=== PATIENT | female | born 1945 | race Hispanic/Latino ===

== ENCOUNTER 2018-10-06 16:13 | Emergency (ER) | payer OTHER, MEDICARE ==
[2018-10-06] MEDS ORDERED: LIDOCAINE 5% TOPICAL PATCH TP ONE (16:52)
[2018-10-06] MEDS ORDERED: ACETAMINOPHEN-CODEINE 300/30MG TAB ONE (19:02)
== END 2018-10-06 20:05 | disposition home or self-care (01) ==
LOC: EDH 16:13
DX: S16.1XXA Strain of muscle, fascia and tendon at neck level, initial encounter (principal); I10 Essential (primary) hypertension; E11.9 Type 2 diabetes mellitus without complications; X58.XXXA Exposure to other specified factors, initial encounter; Y93.89 Activity, other specified; Y92.009 Unspecified place in unspecified non-institutional (private) residence as the place of occurrence of the external cause; Y99.8 Other external cause status
CPT/HCPCS: 72125

== ENCOUNTER → 2022-02-16 | Outpatient (CLI) | payer OTHER, MEDICARE | END | disposition home or self-care (01) | LOC: SHCH 11:18 | PROVIDERS: ATTEND Internal Medicine Cardiovascular Disease | DX: I73.9 Peripheral vascular disease, unspecified (principal); I87.2 Venous insufficiency (chronic) (peripheral) | CPT/HCPCS: 93925; 93970 ==

== ENCOUNTER → 2022-03-11 | Outpatient (CLI) | payer OTHER, MEDICARE ==
[2022-03-11 13:08] LABS: BASOPHILS % (AUTO) 0.6 % (0.0-5.0); EOSINOPHILS % (AUTO) 3.4 % (0.0-8.0); HEMATOCRIT 37.5 % (36-48); LYMPHOCYTES % (AUTO) 35.4 % (21.0-51.0); MEAN CORPUSCULAR HEMOGLOBIN 27.4 pg (27.0-33.0); MEAN CORPUSCULAR HGB CONC 32.3 g/dL (32.0-36.0); MONOCYTES % (AUTO) 10.8 % (3.0-13.0); NEUTROPHILS % (AUTO) 49.4 % (40.0-77.0); PLATELET COUNT (AUTO) 335 K/uL (130-400); RED BLOOD CELL COUNT(AUTO) 4.41 MIL/uL (4.00-5.50)
[2022-03-11 13:20] LABS: INR 0.94 (0.85-1.15); PROTHROMBIN TIME 10.3 SEC (9.6-11.6)
[2022-03-11 13:21] LABS: CREATININE 1.1 mg/dL (0.5-1.5); PARTIAL THROMBOPLASTIN TIME 27.4 SEC (26.3-35.5); POTASSIUM 3.7 mmol/L (3.5-5.1)
== END | disposition home or self-care (01) ==
LOC: LAB 10:03
PROVIDERS: ATTEND Internal Medicine Cardiovascular Disease
DX: I87.2 Venous insufficiency (chronic) (peripheral) (principal); M79.89 Other specified soft tissue disorders; I10 Essential (primary) hypertension; E78.49 Other hyperlipidemia; I73.9 Peripheral vascular disease, unspecified; R00.1 Bradycardia, unspecified; E66.9 Obesity, unspecified; Z68.30 Body mass index [BMI] 30.0-30.9, adult
CPT/HCPCS: 36415; 80048; 85025; 85610; 85730

== ENCOUNTER → 2022-09-13 | Outpatient (CLI) | payer OTHER, MEDICARE ==
[2022-09-13 16:16] LABS: BASOPHILS % (AUTO) 0.5 % (0.0-5.0); EOSINOPHILS % (AUTO) 3.2 % (0.0-8.0); HEMATOCRIT 37.9 % (36-48); LYMPHOCYTES % (AUTO) 36.5 % (21.0-51.0); MEAN CORPUSCULAR HEMOGLOBIN 27.8 pg (27.0-33.0); MEAN CORPUSCULAR HGB CONC 31.7 g/dL (32.0-36.0); MEAN CORPUSCULAR VOLUME 87.9 fL (79-99); MONOCYTES % (AUTO) 9.7 % (3.0-13.0); NEUTROPHILS % (AUTO) 49.8 % (40.0-77.0); PLATELET COUNT (AUTO) 296 K/uL (130-400); RED BLOOD CELL COUNT(AUTO) 4.31 MIL/uL (4.00-5.50); RED CELL DISTRIBUTION WIDTH 13.1 % (11.0-15.5); WHITE BLOOD COUNT (AUTO) 6.3 K/uL (4.8-10.8)
[2022-09-13 16:26] LABS: CREATININE 1.1 mg/dL (0.5-1.5); INR 0.94 (0.85-1.15); PROTHROMBIN TIME 10.3 SEC (9.6-11.6)
[2022-09-13 16:27] LABS: PARTIAL THROMBOPLASTIN TIME 29.2 SEC (26.3-35.5)
== END | disposition home or self-care (01) ==
LOC: LAB 11:29
PROVIDERS: ATTEND Internal Medicine Cardiovascular Disease
DX: I87.2 Venous insufficiency (chronic) (peripheral) (principal); E78.49 Other hyperlipidemia; I87.1 Compression of vein; M79.671 Pain in right foot; Z79.82 Long term (current) use of aspirin; Z79.02 Long term (current) use of antithrombotics/antiplatelets; Z79.899 Other long term (current) drug therapy
CPT/HCPCS: 36415; 80048; 85025; 85610; 85730

== ENCOUNTER → 2023-01-12 | Outpatient (CLI) | payer OTHER, MEDICARE ==
[2023-01-12 16:23] LABS: BASOPHILS # (AUTO) 0.04 K/uL (0.00-0.20); BASOPHILS % (AUTO) 0.6 % (0.0-5.0); EOSINOPHILS # (AUTO) 0.15 K/uL (0.00-0.70); EOSINOPHILS % (AUTO) 2.1 % (0.0-8.0); HEMATOCRIT 36.6 % (36-48); IMMATURE GRANULOCYTE ABSOLUTE 0.03 K/uL (0-1); LYMPHOCYTES # (AUTO) 2.1 K/uL (1.0-4.8); LYMPHOCYTES % (AUTO) 29.9 % (21.0-51.0); MEAN CORPUSCULAR HEMOGLOBIN 27.6 pg (27.0-33.0); MEAN CORPUSCULAR HGB CONC 31.4 g/dL (32.0-36.0); MEAN CORPUSCULAR VOLUME 87.8 fL (79-99); MONOCYTES # (AUTO) 0.5 K/uL (0.1-1.0); MONOCYTES % (AUTO) 7.3 % (3.0-13.0); NEUTROPHILS # (AUTO) 4.2 K/uL (1.8-7.7); NEUTROPHILS % (AUTO) 59.7 % (40.0-77.0); PLATELET COUNT (AUTO) 318 K/uL (130-400); RED BLOOD CELL COUNT(AUTO) 4.17 MIL/uL (4.00-5.50); RED CELL DISTRIBUTION WIDTH 12.9 % (11.0-15.5); WHITE BLOOD COUNT (AUTO) 7.1 K/uL (4.8-10.8)
[2023-01-12 16:32] LABS: INR < 0.93 (0.85-1.15); PROTHROMBIN TIME 10.5 SEC (9.6-11.6)
[2023-01-12 16:33] LABS: CREATININE 1.2 mg/dL (0.5-1.5); POTASSIUM 4.1 mmol/L (3.5-5.1)
[2023-01-12 16:34] LABS: PARTIAL THROMBOPLASTIN TIME 29.4 SEC (26.3-35.5)
== END | disposition home or self-care (01) ==
LOC: LAB 13:48
PROVIDERS: ATTEND Internal Medicine Cardiovascular Disease
DX: I87.1 Compression of vein (principal); I87.2 Venous insufficiency (chronic) (peripheral); I10 Essential (primary) hypertension; I73.9 Peripheral vascular disease, unspecified; M79.671 Pain in right foot; E78.49 Other hyperlipidemia; E66.9 Obesity, unspecified; Z68.30 Body mass index [BMI] 30.0-30.9, adult; Z95.820 Peripheral vascular angioplasty status with implants and grafts
CPT/HCPCS: 36415; 80048; 85025; 85610; 85730

== ENCOUNTER → 2023-03-16 | Outpatient (CLI) | payer MEDICARE | END | disposition home or self-care (01) | LOC: SHCH 14:41 | PROVIDERS: ATTEND Internal Medicine Cardiovascular Disease | DX: I87.2 Venous insufficiency (chronic) (peripheral) (principal); I87.1 Compression of vein; I70.203 Unspecified atherosclerosis of native arteries of extremities, bilateral legs; I10 Essential (primary) hypertension; E66.9 Obesity, unspecified; E78.49 Other hyperlipidemia; E11.9 Type 2 diabetes mellitus without complications; Z95.820 Peripheral vascular angioplasty status with implants and grafts; Z68.30 Body mass index [BMI] 30.0-30.9, adult | CPT/HCPCS: 93925; 93970 ==

== ENCOUNTER → 2023-07-01 | Outpatient (CLI) | payer OTHER, MEDICARE | END | disposition home or self-care (01) | LOC: SHCH 11:16 | PROVIDERS: ATTEND Internal Medicine Cardiovascular Disease | DX: I25.10 Atherosclerotic heart disease of native coronary artery without angina pectoris (principal); I51.7 Cardiomegaly | CPT/HCPCS: 93306 ==

== ENCOUNTER → 2023-10-18 | Outpatient (CLI) | payer OTHER, MEDICARE ==
[2023-10-18 11:59] LABS: BASOPHILS # (AUTO) 0.03 K/uL (0.00-0.20); BASOPHILS % (AUTO) 0.4 % (0.0-5.0); EOSINOPHILS # (AUTO) 0.12 K/uL (0.00-0.70); EOSINOPHILS % (AUTO) 1.8 % (0.0-8.0); HEMATOCRIT 38.9 % (36-48); IMMATURE GRANULOCYTE ABSOLUTE 0.02 K/uL (0-1); LYMPHOCYTES # (AUTO) 2.1 K/uL (1.0-4.8); LYMPHOCYTES % (AUTO) 31.1 % (21.0-51.0); MEAN CORPUSCULAR HEMOGLOBIN 26.6 pg (27.0-33.0); MEAN CORPUSCULAR HGB CONC 31.9 g/dL (32.0-36.0); MEAN CORPUSCULAR VOLUME 83.5 fL (79-99); MONOCYTES # (AUTO) 0.6 K/uL (0.1-1.0); MONOCYTES % (AUTO) 9.1 % (3.0-13.0); NEUTROPHILS # (AUTO) 3.8 K/uL (1.8-7.7); NEUTROPHILS % (AUTO) 57.3 % (40.0-77.0); PLATELET COUNT (AUTO) 376 K/uL (130-400); RED BLOOD CELL COUNT(AUTO) 4.66 MIL/uL (4.00-5.50); RED CELL DISTRIBUTION WIDTH 12.9 % (11.0-15.5); WHITE BLOOD COUNT (AUTO) 6.7 K/uL (4.8-10.8)
[2023-10-18 12:08] LABS: INR 1.07 (0.85-1.15); PROTHROMBIN TIME 11.5 SEC (9.6-11.6)
[2023-10-18 12:10] LABS: PARTIAL THROMBOPLASTIN TIME 27.7 SEC (26.3-35.5)
[2023-10-18 12:21] LABS: POTASSIUM 4.2 mmol/L (3.5-5.1)
== END | disposition home or self-care (01) ==
LOC: LAB 10:22
PROVIDERS: ATTEND Internal Medicine Cardiovascular Disease
DX: Z01.812 Encounter for preprocedural laboratory examination (principal); I73.9 Peripheral vascular disease, unspecified; I87.1 Compression of vein; I87.2 Venous insufficiency (chronic) (peripheral); M79.89 Other specified soft tissue disorders; E78.49 Other hyperlipidemia; E11.9 Type 2 diabetes mellitus without complications; E66.9 Obesity, unspecified; Z68.30 Body mass index [BMI] 30.0-30.9, adult; Z95.820 Peripheral vascular angioplasty status with implants and grafts; Z79.899 Other long term (current) drug therapy
CPT/HCPCS: 36415; 80048; 85025; 85610; 85730

== ENCOUNTER → 2024-02-07 | Outpatient (CLI) | payer OTHER, MEDICARE ==
--- NOTE | 2024-02-08 07:19 | HMCSR ---
APPROVED REPORT Bilateral Lower Extremity Venous Study for DVT., Venous Competence.Study performed with patient in up right position or in reverse Trendelenburg. Vein Imaging CFV (R): Normal flow, augmentation and compression. No evidence of DVT, Diameter 10.8 mm SFJ (R): Normal flow, augmentation and compression. No evidence of DVT. FEM (R): Normal flow, augmentation and compression. No evidence of DVT. POP (R): Normal flow, augmentation and compression. No evidence of DVT, 356 ms of DVR. DFV (R): Normal flow, augmentation and compression. No evidence of DVT. PTV (R): Normal flow, augmentation and compression. No evidence of DVT. Peroneals (R): Normal flow, augmentation and compression. No evidence of DVT. GAS (R): Normal flow, augmentation and compression. No evidence of DVT. CFV (L): Normal flow, augmen tation and compression. No evidence of DVT, Diameter 14.1 mm SFJ (L): Normal flow, augmentation and compression. No evidence of DVT. FEM (L): Normal flow, augmentation and compression. No evidence of DVT. POP (L): Normal flow, augmentation and compression. No evidence of DVT, 422 ms of DVR. DFV (L): Normal flow, augmentation and compression. No evidence of DVT. PTV (L): Normal flow, augmentation and compression. No evidence of DVT. Peroneals (L): Normal flow, augmentation and compression. No evidence of DVT. GAS (L): Normal flow, augmentation and compression. No evidence of DVT. Technologist Impression The deep veins of the bilateral lower extremities appear patent and compressible without evidence of thrombus. Deep venous reflux demonstrated in the bilateral popliteal veins. RGSV Junction 3.0 mm 167 ms Mid thigh 2.5 mm 317 ms Knee 2.1 mm 0 ms Mid- calf 1.9 mm 356 ms RSSV Prox 1.2 mm 0 ms Mid 2.7 mm 0 ms LGSV Junction 3.9 mm 0 ms Mid thigh 2.7 mm 0 ms Knee 3.0 mm 0 ms Mid-calf 2.1 mm 400 ms LSSV Prox 2.6 mm 161 ms Mid 1.5 mm 306 ms Conclusion Deep venous reflux demonstrated in the bilateral popliteal veins. Consider formal venography with IVUS if clinically indicated Conclusion Deep venous reflux demonstrated in the bilateral popliteal veins. Consider formal venography with IVUS if clinically indicated
--- NOTE | 2024-02-08 07:19 | HMCSR ---
APPROVED REPORT Laterality: Bilateral Surgery/Intervention Angioplasty : Date : 09/2023 Site : RFA/RPOP VELOCITY AND DOPPLER WAVEFORM ANALYSIS FAMILY SERVICES WORKER (R) 93.3cm/sec, Biphasic, FAMILY SERVICES WORKER (L) 96.6cm/sec, Monophasic, Prof Fem Art. (R) 40.0cm/sec, Biphasic, Prof Fem Art. (L) 91.1cm/sec, Biphasic, Fem Art Prox. (R) 114.6cm/sec, Biphasic, Fem Art Prox. (L) 77.3cm/sec, Biphasic, Fem Art Mid. (R) 94.9cm/sec, Biphasic, Fem Art Mid. (L) 96.6cm/sec, Biphasic, Fem Art Dist (R) 69.5cm/sec, Biphasic, Fem Art Dist. (L) 67.6cm/sec, Biphasic, Pop Art(AK) (R) 47.5cm/sec, Biphasic, Pop Art (AK) (L) 45.8cm/sec, Biphasic, Pop Art (Fossa)(R) 48.6cm/sec, Biphasic, Pop Art (Fossa) (L) 47.6cm/sec, Biphasic, Pop Art(BK) (R) 53.3cm/sec, Biphasic, Pop Art (BK) (L) 53.8cm/sec, Biphasic, STICK WELDER Prox. (R) 40.5cm/sec, Biphasic, STICK WELDER Prox. (L) 48.2cm/sec, Biphasic, STICK WELDER Mid. (R) cm/sec, Occluded, STICK WELDER Mid. (L) 87.0cm/sec, Biphasic, STICK WELDER Dist. (R) cm/sec, Occluded, STICK WELDER Dist. (L) 31.4cm/sec, Biphasic, Per Art Dist. (R) 67.1cm/sec, Biphasic, Per Art Dist. (L) 81.6cm/sec, Biphasic, TATIANA Prox. (R) 192.1cm/sec, Biphasic, Mild < 50% TATIANA Prox. (L) 118.7cm/sec, Biphasic, TATIANA Mid. (R) 38.2cm/sec, Monophasic TATIANA Mid. (L) 386.8cm/sec, Biphasic, Severe > 75% TATIANA Dist. (R) 30.1cm/sec, Monophasic, TATIANA Dist. (L) 233.3cm/sec, Monophasic, Technologist Impression Diffuse atherosclerosis throughout the bilateral lower extremities. There is evidence of mild stenosis in the right anterior tibial artery. There is evidence of severe stenosis in the left anterior tibial artery. Conclusion Severe stenosis of mid ARA >75% Conclusion Severe stenosis of mid ARA >75%
== END | disposition home or self-care (01) ==
LOC: SHCH 13:11
PROVIDERS: ATTEND Internal Medicine Cardiovascular Disease
DX: I70.293 Other atherosclerosis of native arteries of extremities, bilateral legs (principal); I87.2 Venous insufficiency (chronic) (peripheral); I87.1 Compression of vein
CPT/HCPCS: 93925; 93970